=== PATIENT | female | born 1970 | race Caucasian/White ===

== ENCOUNTER 2018-05-26 19:04 | Emergency (ER) | payer OTHER ==
[2018-05-26 19:14] LABS: BASOPHILS % (AUTO) 1 % (0-3); EOSINOPHILS % (AUTO) 1 % (0-9); HEMATOCRIT 43 % (35-47); HEMOGLOBIN 14.4 gm/dl (12.0-15.5); LYMPHOCYTES % (AUTO) 46.79 % (10-50); MEAN CORPUSCULAR HGB CONC 33.4 gm/dl (32.0-36.0); MEAN CORPUSCULAR VOLUME 90 fL (81-99); MONOCYTES % (AUTO) 7.2 % (0-12)
[2018-05-26 19:16] VITALS: TEMP 98
[2018-05-26 19:33] LABS: CALCIUM 9.2 mg/dl (8.5-10.1); CREATININE 0.95 mg/dl (0.60-1.00); POTASSIUM 3.2 mMol/L (3.5-5.1); TROP I 0.118 ng/ml (0.000-0.056)
[2018-05-26] MEDS ORDERED: POTASSIUM CHLORIDE 10 MEQ TER PO ONE (20:08)
[2018-05-26] MEDS ORDERED: POTASSIUM CHLORIDE 10 MEQ TER ONE (20:18)
[2018-05-26 21:53] VITALS: O2SAT 98
[2018-05-26 22:03] VITALS: RESP 20
[2018-05-26 22:17] VITALS: BP 98/52; PULSE 70
== END 2018-05-26 22:43 | disposition home or self-care (01) | DRG 951 ==
LOC: ED 19:04
DX: Z95.810 Presence of automatic (implantable) cardiac defibrillator (principal); I45.10 Unspecified right bundle-branch block
CPT/HCPCS: 36415; 71045; 80048; 83735; 83880; 84484; 85025; 93005; 99284; A9270-GY

== ENCOUNTER 2019-04-18 11:35 | Outpatient (CLI) | payer BC | END 2019-04-18 11:36 | disposition home or self-care (01) | LOC: CONVCARE 11:35 | PROVIDERS: ATTEND Internal Medicine Cardiovascular Disease | DX: Z86.74 Personal history of sudden cardiac arrest (principal) | CPT/HCPCS: 93005 ==